=== PATIENT | male | born 1965 | race Two or more races ===

== ENCOUNTER 2022-04-03 15:29 | Outpatient (CLI) | payer OTHER ==
[~2022-04-03 15:29] MED LIST: ATENOLOL25 MG PO; ENALAPRIL MALEA10 MG PO; GLIPIZIDE10 MG PO; LIPITOR20 MG PO; METFORMIN HCL500 M2 PO; PERCOCET 5/3251 TAB PO; PROZAC40 MG PO; XANAX XR2 MG PO; [UNRECOGNIZED DRUG - OTHER] PO
== END 2022-04-03 15:35 | disposition home or self-care (01) ==
LOC: SONOGRAMA 15:29
PROVIDERS: ATTEND Pathology Anatomic Pathology & Clinical Pathology
DX: E07.9 Disorder of thyroid, unspecified (principal); E04.9 Nontoxic goiter, unspecified; D34 Benign neoplasm of thyroid gland; E04.2 Nontoxic multinodular goiter